=== PATIENT | female | born 1960 | race Caucasian/White ===

== ENCOUNTER 2025-07-31 07:51 | Outpatient (AMB) | payer OTHER, SELFPAY ==
--- NOTE | 2025-07-31 07:56 | A.OFFVIS_ITS ---
Vital Signs 07/31/25 08:03 Height 5 ft 7 in Weight 226 lb BMI 35.4 BP 142/90 H Blood Pressure Location Rt brachial Position Sitting Respiration 16 Pulse 73 Pulse Source Pulse Oximeter Pulse Oximetry (%) 97 Oxygen Delivery Method Room Air Intake Visit Reasons: tremor Personal Development Mentor Required: No Allergies amoxicillin Allergy (Unknown, Verified 07/31/25 08:10) Unknown Medication List - Last Reconciled 07/31/25 by Rhoda Florence, DARLENE acetaminophen 500 mg PO QID PRN bupropion HCl XL 150 mg PO QAM celecoxib 200 mg PO DAILY fluoxetine 20 mg PO DAILY lisinopril 10 mg PO DAILY omeprazole 10 mg PO DAILY simvastatin 20 mg PO QPM tirzepatide (weight loss) (Zepbound) mg subcut HPI Comments Details: German is a 64-year-old female patient with a past medical history of spinal cord compression with ACDF in 2013, anemia, arthritis, depression, heartburn, high cholesterol, sleep disturbances, here today for an evaluation of tremor. According to primary care referral notes, she had mentioned a tremor more pronounced to the left hand intermittent throughout the day. She was referred to Neurology for further evaluation. German tells me today that about a year and a half ago she noticed an intermittent tremor to her left upper extremity specifically to the 1st and 2nd digit. Over the course of the last couple of months it has become more frequent occurring now at least a couple of times per day for approximately 20 seconds or so. She describes the tremor as somewhat of a twitching of the 1st and 2nd digit. 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 She denies any weakness of the shoulder or biceps area. She cannot predict when it will happen. She anderson not note any specific positions in which the tremoring/twitching occurs. She does have a history of spinal cord compression and ACDF in 2013. This affected her right side with paresthesias and weakness but she feels that she had a full recovery and has no residual symptoms from this. She denies any neck stiffness or pain though she feels that she possibly lost some range of motion after her procedure. Father with neurological disease and there was suspected Parkinsonism. Sleep: Has had sleep difficulties all of her life with profound insomnia. Some mild snoring. No acting out of dreams Constipation: Mild constipation Smell: Does not feel that she has any loss of sense of smell Gait: 2 knee replacements, arthritis in one foot. Gait can be effected by this. 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 Lives home with No experience Denies any exposure to chemicals such as pesticides that she is aware of [facility] Medical History Anemia Hypertension HLD (hyperlipidemia) Depression Arthritis GERD (gastroesophageal reflux disease) Tremor Surgical History History of cholecystectomy H/O knee surgery H/O Spinal surgery Family History (Updated 07/31/25 @ 08:00 by Ann Wan CMA) Father Hypertension Diabetes mellitus Bipolar disorder Osteoporosis Mother Hypertension CHF (congestive heart failure) Osteoarthritis Brother Hypertension Gout Review of Systems Const All systems reviewed & are unremarkable except as noted in HPI and below Physical Exam Const General: cooperative, healthy appearing, comfortable and no acute distress Nutritional Appearance: well nourished Orientation/consciousness: patient oriented x3 Limitations: no limitations HEENT Head: Yes normal to inspection and Yes normocephalic Eyes General: appearance normal, both eyes and all related structures Visual Chen: normal visual chen by confrontation Alignment and Position: alignment normal Periorbital: periorbital findings normal Eyelids: Yes eyelids normal Conjunctivae: conjunctivae normal Sclerae: sclerae normal Neck Neck: Yes normal visual inspection General: Yes no CVA tenderness Back/Spine/Pelvis Back: no CVA tenderness Cervical Spine: normal cervical lordosis Thoracic/Lumbar Spine: thoracic and lumbar spine normal to inspection Neuro General: patient oriented x3 and tone normal Cranial nerves: Yes CN's II-XII intact bilaterally and Yes Facial sensation intact/muscles of mastication intact Cognition (Neuro): normal cognition Gait exam (Neuro): Normal gait present Motor exam (neuro): 5/5 motor strength present throughout and no tremor noted Sensory Exam: double simultaneous stimulation for sensation normal Deep tendon reflexes (DTR's): Right triceps reflex intensity grade: 1+, Left triceps reflex intensity grade: 1+, Rt Biceps (C5, C6): 1+, Left biceps reflex intensity grade: 1+, Right brachioradialis reflex intensity grade: 1+, Left brachioradialis reflex intensity grade: 1+, Right patellar reflex intensity grade: 1+, Left patellar reflex intensity grade: 1+, Right ankle reflex intensity grade: 1+ and Left ankle reflex intensity grade: 1+ Romberg Test: Negative Pupils: Normal pupillary reactivity/response: bilateral Psych Appearance: grossly normal Mental Status: mental status grossly normal Speech and movement: Normal speech and movement present and Clear speech present Affect: normal affect Attitude: cooperative Thought process: Normal thought process present Thought content: Normal thought content present Insight: Good insight present (Psych) Judgement: Good judgement present (Psych) Assessment & Plan Assessment & Plan (1) Weakness: Code(s): R53.1 - Weakness Category: Medical (2) Twitching: Code(s): R25.3 - Fasciculation Category: Medical Plan German is a 64-year-old female patient with a past medical history of spinal cord compression with ACDF in 2013, anemia, arthritis, depression, heartburn, high cholesterol, sleep disturbances, here today for an evaluation of tremor. After taking a full history from her and examining her, I can not discern a clear diagnosis for her described tremor. I was not able to reproduce the tremor during today's visit with positioning of her upper extremity or neck, distraction, or certain activities. [id number] test was normal. Her strength was seemingly normal on exam however she does note some weakness of the left wrist but without any pain. This raises some concern for possibility of CTS. She may be experiencing some fasciculations to this area which she is receiving as a tremor. I will obtain an EMG of the left upper extremity to rule out CTS and follow up after the EMG study. If her EMG is normal, we will continue to follow her to see how her symptoms develop over time. I can not fully exclude PD though based on today's exam she does not fit criteria. -EMG LUE -1 month Orders: Orders NE electromyogram (EMG) Today R25.3 - Fasciculation, R53.1 - Weakness NE nerve conduction velocity Today R25.3 - Fasciculation, R53.1 - Weakness Coding Level of Care Code New Pt Level 4 (75419) Diagnoses Weakness R53.1 Twitching R25.3
--- OUTSIDE RECORDS SUMMARY | 2025-07-31 07:56 | XMS_ITS | Data Portability ---
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 I have encouraged continued exercises with specific emphasis on quadriceps strengthening extension, as well as ROM and flexion. Also discussed the use of supportive stockings/icing/an d elevating if swelling continues to linger. In those patients with chronic stasis, edema or propensity for edema with cellulitis, we've encouraged consulting their PCP for longer term supportive stocking use. We've spoken about anti-biotic precautions before dental procedures. We recommended Amoxicillin and they will contact us for prescriptions and refills prn. If there is an allergy, we will discuss that further and make further recommendations for anti-biotic use and that will be on a continuing basis. Patient should continue a home exercise program to optimize their function, f/u with us with any problems or concerns - and see us back as instructed for routine follow up and xrays. XRAYS were evaluated today during patient's visit, indepently interpreted prior to receiving or reviewing Radiologist's interpretation and dictated report. This visit has been transcribed using voice recognition software, spelling errors may occur. Please contact provider with any questions. Not available 04/13/2023 10:55:34 Plan of Treatment Reminders Order Date Submit Date Provider Last Modified By Organization Details Last Modified Time Details Appointments None recorded. Lab None recorded. Referral None recorded. Procedures None recorded. Surgeries None recorded. Imaging None recorded. Medication Orders clindamycin HCl 300 mg capsule 2022 023 [facility][id number], [address], [facility], [place], [address], 3 10:55:37 Patient TargetsNo targets recorded. Patient Instructions Encounter Date Encounter Id Patient Instructions Last Modified By Organization Details Last Modified Time 05/17/2022 [id number] We have discusse d the post op TKA. I have encouraged continued outpatient physical therapy. A physical therapy prescription has been written, with specific emphasis on quadriceps strengthening extension, as well as ROM and flexion. We have spoken about wound care, the care of the actual incision, the care of the steri-strips and the care of the wound itself. Patient may use creams or lotions at this time if the wound is well healed. We discussed post op anticoagulation, pt may finish the anticoag med as prescribed post op, and return to their preop anticoag meds if they were prescribed. Also discussed the use of JET stockings. I would recommend stopping them at this point unless they normally use supportive stockings, in which they would return to their normal supportive stocking wear. Patient should continue to ice and elevate to help with the swelling. Spoke with patient about anti-biotic precautions. We recommended Amoxicillin and they will contact us for prescriptions. If there is an allergy, we will discuss that further and make further recommendations for anti-biotic use and that will be on a continuing basis. We talked specifically about ROM strengthening, wound care, activity modifications and driving. Patient will work with outpatient PT on increasing ROM, strength -- will follow up with us in 10 weeks if further PT is needed. [email or web address] Not available 05/17/2022 13:04:38 Reason for Referral None Reported. Results Created Date Observation Date Name Description Value Unit Range Abnormal Flag Note LastModifiedBy Organization Detail LastModifiedTime 05/17/20 22 05/17/2022 XR, hip, unila teral http:/ [email or web address] [email or web address]/I ntegra tionPr ocesso r.[email or web address] ?CMD=Sascha BORJA&ACC ESSION =[id number] charles [facility] [address], [place], [address], 05/26/2022 14:51:21 Result Notes Documentation Provider Name and Address Organization Details Recorded Time Xr, Hip, Unilateral : [email or web address]?CMD=OPENSTUDY&ACC [email or web address]=[id number] Marcy Torresradha [facility] 05/26/2022 14:51:21 Problems Name Problem SNOMED Code Status Onset Date Resolution Date Notes Provider Name and Address Organization Details Recorded Time Pain of left knee joint [id number] Active 2022 CATHRYN ORTIZ NP [address] [place] [address], [phone], [facility] 3 10:55:12 Problem Notes None recorded. Procedures Surgical History Date Name Laterality Status Provider Name and Address Organization Details Recorded Time 04/11/20 22 Orthopaedic Surgery completed CATHRYN ORTIZ NP [address] [place] [address], [phone], [facility] 05/17/2022 12:42:54 06/02/20 19 Orthopaedic Surgery completed CATHRYN ORTIZ NP [address] [place] [address], [phone], [facility] 05/17/2022 12:43:21 10/02/19 17 Other completed CATHRYN ORTIZ NP [address] [place] [address], [phone], [facility] 05/17/2022 12:43:38 10/02/19 05 cholecystectomy completed CATHRYN ORTIZ NP [address] [place] [address], [phone], [facility] 05/17/2022 12:43:47 10/02/18 98 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 Procedure Notes None recorded. Medical Equipment None Reported. Allergies Allergen ID Allergen Name Allergen Category Reaction Reaction Severity Criticality Documentation Date Start Date Code Code System Note Provider Name and Address Organization Details Recorded Time 652470 Macrodant in medicatio n hives Not available Not available 05/17/2022 38096 4 RxNorm CATHRYN ORTIZ, REGENERATION OPERATOR [address], [place], [address], [facility] 2 12:40:47 905723 amoxicill in medicatio n anaphylax is Not available Not available 05/17/2022 723 RxNorm CATHRYN ORTIZ, REGENERATION OPERATOR [address] [place], [phone], [facility] 2 12:41:01 604045 dicloxaci llin medicatio n anaphylax is Not available Not available 05/17/2022 3356 RxNorm CATHRYN ORTIZ, REGENERATION OPERATOR [address] [place], [address], [facility] 2 12:41:16 Medications Name Sig Start Date Stop Date Status Note LastModified by Organization Details LastModified Time celecoxib 200 mg capsule TAKE 1 TO 2 CAPSULES BY MOUTH ONCE A DAY active Not Available Not Available No t Available clindamycin HCl 300 mg capsule TAKE 2 CAPSULES BY MOUTH 1 HOUR BEFORE DENTAL VISIT. active Not Available Not Available No t Available trazodone 50 mg tablet TAKE 1 TABLET BY MOUTH EVERYDAY AT BEDTIME active Not Available Not Available No t Available naltrexone 50 mg tablet TAKE 1/4 TAB BY MOUTH TWICE A DAY 05/17 completed Not Available Not Available Not Available bupropion HCl SR 100 mg tablet,12 hr sustained-r elease TAKE 1 TABLET BY MOUTH TWICE A DAY 05/17 completed Not Available Not Available Not Available simvastatin 20 mg tablet TAKE 1 TABLET BY MOUTH EVERY DAY active Not Available Not Available No t Available lisinopril 10 mg tablet TAKE 1 TABLET BY MOUTH EVERY DAY active Not Available Not Available No t Available fluoxetine 10 mg capsule TAKE 1 CAPSULE BY MOUTH EVERY DAY active Not Available Not Available No t Available hydrochloro thiazide 25 mg tablet TAKE 1 TABLET BY MOUTH EVERY DAY active Not Available Not Available No t Available ondansetron 4 mg disintegrat ing tablet TAKE 1-2 TABS BY MOUTH EVERY 8 HOURS NEEDED FOR NAUSEA active Not Available Not Available No t Available fluoxetine 20 mg capsule TAKE 1 CAPSULE BY MOUTH EVERY DAY active Not Available Not Available No t Available oxycodone 5 mg tablet TAKE 1-2 TABLETS BY MOUTH EVERY 4 HOURS NEEDED FOR PAIN 05/17 completed Not Available Not Available Not Available bupropion HCl XL 150 mg 24 hr tablet, extended release TAKE 1 TABLET BY MOUTH EVERY DAY IN THE MORNING 05/17 completed Not Available Not Available Not Available Novofine 32 32 gauge x 1/4 needle ONCE DAILY WITH SAXENDA active Not Available Not Available No t Available Eliquis 2.5 mg tablet TAKE 1 TABLET BY MOUTH TWICE A DAY 05/17 completed Not Available Not Available Not Available Saxenda 3 mg/0.5 mL (18 mg/3 mL) subcutaneou s pen injector INJECTED 3 MG SUBCUTANE OUSLY DAILY active Not Available Not Available No t Available Wegovy 2.4 mg/0.75 mL subcutaneou s pen injector INJECT 2.4. MG SUBCUTANE OUSLY ONCE WEEKLY active Not Available Not Available No t Available Wegovy 1.7 mg/0.75 mL subcutaneou s pen injector INJECT 1 PEN SUBCUTANE OUSLY ONCE WEEKLY X 4 WEEKS active Not Available Not Available No t Available Paxlovid 300 mg (150 mg x 2)-100 mg tablets in a dose pack TAKE 3 TABLETS BY MOUTH TWICE DAILY FOR 5 DAYS DIRECTED ON PACKAGING active Not Available Not Available No t Available COVID-19 At-Home Test kit FOLLOW INSTRUCTI ONS INCLUDED WITH THE PACKAGE. active Not Available Not Available No t Available Vitals Date Recorded Body height Body mass index (BMI) Body weight Provider Name and Address Organization Details Last Updated DateTime 04/13/2023 170.18 cm 41.5 kg/m2 574710.98 g CATHRYN ORTIZ NP [address] [place] [address], [phone], [facility] 04/13/2023 10:46:40 Date Recorded Body height Body mass index (BMI) Body weight Provider Name and Address Organization Details Last Updated DateTime 05/17/2022 170.18 cm 41.5 kg/m2 610765.98 g CATHRYN ORTIZ NP [address] [place] [address], [phone] 05/17/2022 12:40:30 Social History None recorded. Functional Status None recorded. Mental Status None recorded. Family History Relationship Description Onset Age of this Age Resolved Age Notes LastModified by Organization Details LastModified Time Father No current problems or disability [email or web address] Not available 12:42:32 Mother No current problems or disability [email or web address] Not available 12:42:32 Medical History Condition Response Blood Clots / Phlebitis N HIV or AIDS N High Blood Pressure Y Depression or Anxiety N MRSA N Any Other Significant Medical Issues N Emphysema / Chronic Bronchitis N Reaction to General/Local Anesthesia N Blood Disorder: Anemia, clotting disorde r, etc. (please specify) N Weight Gain / Loss N Hepatitis / Jaundice N Diabetes: Type I or II (please specify) N Kidney / Bladder Infections N Heart Condition: Heart Attac k, Afib, Irregular Heartbeat, etc. (please specify) N Hearing Loss N Seizures / Epilepsy N Night Sweats N Cancer N Chemical Dependency / Alcoholism N Stroke N Ulcer / Stomach Bleeding / Indigestion N Visual Loss or Glaucoma N Psoriasis / Skin Rash N Thyroid Disorder N Pulmonary Embolism N Asthma / Shortness of Breath / Sleep [employer] ea (please specify) N Gynecological HistoryNo gynecological history recorded. Obstetrics History GPAL:G 0 P 0 0 0 0 Immunizations Vaccine Type Date Status Note Provider Nam e and Address Organization Details Recorded Time SARS-COV-2 (COVID-19) vaccine, UNSPECIFIED 09/29/2020 completed David cochran [facility] 05/17/2022 12:46:04 SARS-COV-2 (COVID-19) vaccine, UNSPECIFIED 10/20/2019 completed David cochran [facility] 05/17/2022 12:46:12 SARS-COV-2 (COVID-19) vaccine, UNSPECIFIED 06/30/2021 completed David cochran [facility] 05/17/2022 12:46:19 SARS-COV-2 (COVID-19) vaccine, UNSPECIFIED 02/11/2022 completed David cochran [facility] 05/17/2022 12:46:26 Past Encounters Encounter ID Performer Location Encounter Start Date Encounter Closed Date Diagnosis/Indication Diagnosis SNOMED-CT Code Diagnosis ICD10 Code Diagnosis IMO Codes Diagnosis Note [id number] CATHRYN ORTIZ NP [address] [address] 05/17/2022 11:50:37 05/17/2022 13:18:41 History of left total knee replacement 4715391157 500495 Z96.210 [id number] CATHRYN ORTIZ NP [address] [address] 04/13/2023 10:28:41 04/13/2023 11:16:18 History of left total knee replacement 4629141668 881197 Z96.652 Pain of le ft knee joint 4220349574 43589 M25.562 Health Concerns Section Related Observation LastModified by Organization Detai ls LastModified Time None Recorded Concern Status LastModified by Organization Details LastModified Time None Recorded Advance Directives Directive None Recorded Payers Insurance Date Sequence Insurance Name Policy Number Policy Mueller Covered Member ID Mueller Member ID Guarantor Name 04/25/2023 1 [facility] German Tang [id number] German Tang 07/26/2022 1 [facility] [id number] German Tang [id number] German Tang Notes Date Note Type Note Provider Name and Address Organization Details Recorded Time 05/17/2022 text/html ROS as noted in the HPI This is a patient of [facility], s/p LEFT TKA approx. 4 weeks ago at [facility]. Patient is doing well, taking TYLENOLfor pain. Patient is currently progressing well with outpatient physical therapy. Patient took ELIQUIS for post op anticoagulation, and has finished that course. No fevers, chills, falls, or trauma. Patient ambulates using a CANE . Other complaints include very sore, working on ROM, gait CATHRYN ORTIZ NP [address] [place] [address], [phone], [facility] 05/17/2022 13:04:55 04/13/2023 text/html ROS as noted in the HPI This is a patient of , s/p LEFT TKA approx. one year ago. Patient is doing well, taking NOTHINGfor pain. Patient is currently progressing well with home exercise program. No fevers, chills, falls, or trauma. Patient is not currently using any assistive devices. Other complaints include - still working on gait, she feels a bit deconditioned d/t oa in rest of her body and ankles CATHRYN ORTIZ NP [address] [place] [address], [place], [phone], [facility] - [facility] 04/17/2023 14:11:46 OBGyn Episode No OBEpisode recorded.
--- OUTSIDE RECORDS SUMMARY | 2025-07-31 07:56 | XMS_ITS | Clinical Summary ---
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 Name Role Phone Khai Carver MD Primary Care Provider [phone] Encounters Date Type Department Care Team Description 05/05/2025 2:14 PM EDT - 05/05/2025 11:59 PM EDT Hospital Encounter Radiology Department - [address] [phone] Mass of right breast Discharge Disposition: Home or Self Care from Last 3 Months Family History Medical History Relation Name Comments Breast cancer Maternal Cousin 3 cousins Breast cancer Other pat aunt Relation Name Status Comments Maternal Cousin 3 cousins Alive Other pat aunt Social History Tobacco Use Types Packs/Day Years Used Date Smoking Tobacco: Never Assessed Comments Unknown Sex and Gender Information Value Date Recorded Sex Assigned at Not on file Legal Sex Female 3:21 PM EDT Gender Identity Not on file Sexual Orientation Not on file Obstetrics History Para Term AB IAB SAB Ectopic Multiple Livin g Live Births 0 0 0 Plan of Treatment Health Maintenance Due Date Last Done Comments Colorectal Cancer Screening: Colonoscopy 1961 Cervical Cancer Screening: Pap Smear 1982 Pneumococcal Vaccine: 50+ Years (1 of 1 - PCV) 2011 Depression Screening 10/02/2024 HIV Screening 04/17/2025 Hepatitis C Screening 04/17/2025 Social Influencers of Health Screening 04/17/2025 Influenza Vaccine (#1) 2025 , 06/19/2023, 06/29/2022, Additional history exists Hypertension/CHF/CAD Annual BMP Blood Test 03/11/2026 03/11/2025, 02/19/2024, 11/30/2022 Breast Cancer Screening 05/05/2027 05/05/2025 Cholesterol Screening (Lipid Panel) 03/11/2030 03/11/2025 DTaP,Tdap,and Td Vaccines (3 - Td or Tdap) 07/09/2034 07/09/2024, 06/13/2014 RSV Immunization Adult Patients (1 - 1-dose 75+ series) 2036 MMR Vaccines Aged Out 10/27/1994 No longer eligi ble based on patient's age to complete this topic Zoster Vaccines Completed 08/26/2020, 08/03, 05/29/2020 COVID-19 Vaccine Completed 06/15/2024, 12/2022, 06/29/2022, Additional history exists HIB Vaccines Aged Out No longer eligi ble based on patient's age to complete this topic HPV Vaccines Aged Out No longer eligi ble based on patient's age to complete this topic Hepatitis A Vaccines Aged Out No long er eligible based on patient's age to complete this topic Hepatitis B Vaccines Aged Out No long er eligible based on patient's age to complete this topic IPV Vaccines Aged Out No longer eligi ble based on patient's age to complete this topic Meningococcal ACWY Vaccine Aged Out N o longer eligible based on patient's age to complete this topic Meningococcal B Vaccine Aged Out No l onger eligible based on patient's age to complete this topic RSV Immunization Patients Under 20 months Aged Out No longer eligible based on patient's age to complete this topic Varicella Vaccines Aged Out No longer eligible based on patient's age to complete this topic Procedures Procedure Name Priority Date/Time Associated Diagnosis Comments MG MAMMO DIGITAL DIAGNOSTIC W HOMERO BILAT Routine 05/05/2025 2:32 PM EDT Mass of right breast from Last 3 Months Results * MG Mammo Digital Diagnostic w Homero bilat (05/05/2025 2:32 PM EDT) Anatomical Region Laterality Modality Breast Bilateral Mammography 05/05/2025 2:34 PM EDT Impressions 05/05/2025 2:48 PM EDT Decreasing size of the tiny nodule in the lower inner right breast which is considered benign. No further follow-up needed. No new mammographic evidence of malignancy in either breast. BREAST DENSITY: B - There are scattered areas of fibroglandular density. BI-RADS CATEGORY: 2 - BENIGN RECOMMENDATION: Screening bilateral mammogram is recommended in 1 year. MAMMO LOCATION: [facility], [address] [place] [address], [phone], . -------- FINAL REPORT -------- Dictated By: Lizzette Ramsay Dictated Date: 05/05/2025 14:34 ET Assigned Physician: Lizzette Rmasay Reviewed and Electronically Signed By: Lizzette Ramsay Signed Date: 05/05/2025 14:48 ET Workstation ID: [id number] Transcribed By: Self Edit Transcribed Date: 05/05/2025 14:34 ET Narrative 05/05/2025 2:48 PM EDT EXAM: MG MAMMO DIGITAL DIAGNOSTIC W HOMERO BILAT HISTORY: One year follow-up of a probably benign focal asymmetry in the lower inner right breast. COMPARISON: 09/12/2024 and as far back as 01/04/2023 TECHNIQUE: Bilateral mediolateral oblique and craniocaudal views were obtained digitally with 3-D mammogram (digital breast tomosynthesis). Computer-aided detection was utilized in evaluation of this exam (CAD). FINDINGS: Decreasing size of the tiny circumscribed nodule in the anterior lower inner right breast. No new suspicious mass, architectural distortion, or suspicious calcifications in either breast. Procedure Note Lizzette Ramsay MD - 05/05/2025 EXAM: MG MAMMO DIGITAL DIAGNOSTIC W HOMERO BILAT HISTORY: One year follow-up of a probably benign focal asymmetry in thelower inner right breast. COMPARISON: 09/12/2024 and as far back as 01/04/2023 TECHNIQUE: Bilateral mediolateral oblique and craniocaudal views wereobtained digitally with 3-D mammogram (digital breast tomosynthesis).Computer-aided detection was utilized in evaluation of this exam (CAD). FINDINGS: Decreasing size of the tiny circumscribed nodule in the anterior lowerinner right breast. No new suspicious mass, architectural distortion, orsuspicious calcifications in either breast. IMPRESSION: Decreasing size of the tiny nodule in the lower inner right breast whichis considered benign. No further follow-up needed. No new mammographic evidence of malignancy in either breast. BREAST DENSITY: B - There are scattered areas of fibroglandular density. BI-RADS CATEGORY: 2 - BENIGN RECOMMENDATION: Screening bilateral mammogram is recommended in 1 year. MAMMO LOCATION: [facility], [address] [place] [address], [phone], . -------- FINAL REPORT -------- Dictated By: Lizzette Ramsay Dictated Date: 05/05/2025 14:34 ET Assigned Physician: Lizzette Ramsay Reviewed and Electronically Signed By: Lizzette Ramsay Signed Date: 05/05/2025 14:48 ET Workstation ID: [id number] Transcribed By: Self Edit Transcribed Date: 05/05/2025 14:34 ET Khai Carver MD IMG BI PROCEDURES Final Result from Last 3 Months Insurance [facility] Care Teams Silk Finisher Relationship Specialty Start Date End Date Khai Carver MD [address] [place], [place] [phone] PCP - General Internal Medicine 04/16/25
--- OUTSIDE RECORDS SUMMARY | 2025-07-31 07:56 | XMS_ITS | Encounter Summary ---
Author Organization [facility] Address [address] [place] [address] Phone Care Team Providers Care Academic Coach Name Role Phone Cinthya Felix MD Unavailable [phone] Khai Carver MD Primary Care Provider [phone] John Ennis PA-C Primary Care Provider [phone] Encounter Details Date Type Department Care Team (Latest Contact Info) Description 04/07/2025 Ancillary Orders [facility] Internal Medicine [address] [place] [address] Khai Carver MD [address] [place] [address] Breast cancer screening by mammogram (Primary Dx); Other abnormal and inconclusive findings on diagnostic imaging of breast Social History Tobacco Use Types Packs/Day Years Used Date Smoking Tobacco: Never Smokeless Tobacco: Never Alcohol Use Standard Drinks/Week Comments Yes 0 (1 standard drink = 0.6 oz pur e alcohol) 1-2 drinks, Monthly or less Child or Family Care Answer Date Record ed Do you have problems with on e of the following making it difficult for you to work, study, or receive health care? No 03/05/2025 Education Answer Date Recorded Are you interested in help w ith more adult education (for example, completing high school, GED, job training, learning the [place] language, technical skills, or developing parenting skills)? No 03/05/2025 Are you concerned about learning? Not on file 03/05/2025 No 03/05/2025 Yes 03/05/2025 Food Answer Date Recorded Within the past 6 months we worried whether our food would run out before we got money to buy more. Never True 03/05/2025 Within the past 6 months the food we bought just didn't last and we didn't have enough money to get more. Never True Residential Stability Answer Date Recor ded What is your housing situation today? I have harsh sing 03/05/2025 How many times have you move d in the past 12 months? Zero (I did not move) 03/05/2025 Paying for Meds Answer Date Recorded Do you have trouble paying for medicines? No 03/05/2025 Paying Utility Bills Answer Date Record ed Do you have trouble paying your heating or elect ricity bill? No 03/05/2025 Transportation Answer Date Recorded Has the lack of transportati on kept you from medical appointments or from getting medications? No 03/05/2025 Digital Access Answer Date Recorded No 03/05/2025 Yes 03/05/2025 Do you have reliable internet access at home? Ye s 03/05/2025 Do you have a device (e.g., phone, tablet, computer) with a working camera? Yes 03/05/2025 Intimate Partner Violence Answer Date R ecorded Are you denied basic needs s uch as food, clothing, or medical care? No 03/05/2025 In the past 12 months have y ou been in a relationship with a person who hurts, threatens, or tries to control you? No 03/05/2025 Are you denied basic needs s uch as food, clothing, or medical care? No 03/05/2025 In the past 12 months have y ou been in a relationship with a person who hurts, threatens, or tries to control you? 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 Not on file documented as of this encounter Plan of Treatment Upcoming Encounters Date Type Department Care Team (Late st Contact Info) Description 07/23/2025 Procedure Pass [facility] Echo Lab [address] [place] [address] 09/08/2025 9:30 AM EST Appointment [facility] Echo Lab [address] [place] [address] John Ennis PA-C [address] [place] [address] 09/22/2025 8:00 AM EST Office Visit [facility] Internal Medicine [address] [place], [place] [phone] John Ennis PA-C [address] [place], [place] [phone] Scheduled Orders Name Type Priority Associated Diagnoses Orde r Schedule Mammogram Diagnostic (Bilateral) Imaging Routine Other abnormal and inconclusive findings on diagnostic imaging of breast Expected: 04/01/2025, Expires: 07/02/2025 documented as of this encounter Visit Diagnoses Diagnosis Breast cancer screening by mammogram- Primary Other abnormal and inconclusive findings on diagnostic imaging of breast documented in this encounter Additional Health Concerns Assessment Noted Time PHQ-2 Depression Total Score: 1 03/05/20 25 6:08 PM EDT documented as of this encounter Care Teams Academic Coach Relationship Specialty Start Date End Date Khai Carver MD [address] [place] [address] [phone] PCP - General Internal Medicine 04/01/25 04/29/25 John Ennis PA-C [address] [place] [address] [phone] PCP - General Physician Trial Examiner 04/30/25 Cinthya Felix MD [address] [place] [address] Orthopedics & Sports Medicine, [facility] [place] [address] Historical LMR Provider 07/22/1704/29 documented as of this encounter Additional Source Comments The information contained in this document represents components of the legal health record. It is not the complete legal health record.[facility]
--- OUTSIDE RECORDS SUMMARY | 2025-07-31 07:56 | XMS_ITS | Encounter Summary ---
Author Organization [facility] Address [address] [place] [address] Phone Care Team Providers Care Emergency Veterinary Technician Name Role Phone Rich Gracia MD Primary Care Provid er Cinthya Felix MD Unavailable [phone] John Ennis PA-C Primary Care Provider [phone] Khai Carver MD Primary Care Provider [phone] John Ennis PA-C Primary Care Provider [phone] Encounter Details Date Type Department Care Team (Latest Contact Info) Description 02/19/2024 Transcribe Orders [facility] Laboratory [address] [address] Celina Hernández, JEMAL [address] [place] [address] Nausea (Primary Dx); Retching; Abdominal pain, left upper quadrant Social History Tobacco Use Types Packs/Day Years Used Date Smoking Tobacco: Never Smokeless Tobacco: Never Alcohol Use Standard Drinks/Week Comments Not Currently 0 (1 standard drink = 0.6 oz pur e alcohol) Education Answer Date Recorded Are you interested in more education? Not on miguelito e 01/27/2023 Are you concerned about learning? Not on file 01/27/2023 No 01/27/2023 No 01/27/2023 Digital Access Answer Date Recorded No 02/22/2023 No 02/22/2023 Reliable internet access at home? Not on file 02/22/2023 Device with a working camera? 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 Not on file documented as of this encounter Plan of Treatment Upcoming Encounters Date Type Department Care Team (Late st Contact Info) Description 07/23/2025 Procedure Pass [facility] Echo Lab [address] [place] [address] 09/08/2025 9:30 AM EST Appointment [facility] Echo Lab [address] [place] [address] John Ennis PA-C [address] [place] [address] 09/22/2025 8:00 AM EST Office Visit [facility] Internal Medicine [address] [place], [place] [phone] John Ennis PA-C [address] [place] [address] documented as of this encounter Results * Lipase (02/19/2024 10:58 AM EDT) LIPASE 42 16 - 63 U/L [facility] Blood 02/19/2024 10:5 8 AM EDT 02/19/2024 11:01 AM EDT us Celina Hernández AUTOMATION QA LEAD LAB BLOOD ORDERABLES Leonora l Result [address] [address] * C-Reactive Protein (02/19/2024 10:58 AM EDT) C REACTIVE PROTEIN <3.0 0.0 - 4.0 mg/L [facility] Blood 02/19/2024 10:5 8 AM EDT 02/19/2024 11:01 AM EDT Celina Hernández NP LAB BLOOD ORDERABLES Leonora l Result [address] [address] * Comprehensive metabolic panel (02/19/2024 10:58 AM EDT) SODIUM 136 133 - 146 mmol/L [facility] POTASSIUM 4.0 3.3 - 5.1 mmol/L [facility] CHLORIDE 99 96 - 108 mmol/L [facility] CO2 25 21 - 35 mmol/L [facility] BUN 11 6 - 19 mg/dL [facility] CREATININE 0.70 0.5 - 1.5 mg/dL [facility] GLUCOSE 92 70 - 99 mg/dL [facility] ALBUMIN 4.4 3.9 - 4.8 g/dL [facility] TOTAL PROTEIN 7.7 6.5 - 8.0 g/dL [facility] CALCIUM 10.0 8.4 - 10.3 mg/dL [facility] ALKALINE PHOSPHATASE 89 39 - 117 U/L [facility] TOTAL BILIRUBIN 0.4 0.0 - 1.2 mg/dL [facility] AST 22 0 - 37 U/L [facility] ALT 13 0 - 40 U/L [facility] GLOBULIN 3.3 1 - 4.8 g/dL [facility] EGFR 98 >59 mL/min/1.7 3m2 [facility] Comment:Estimated glomerular filtration rate calculated using the CKD-EPI refit equation. ANION GAP 16 10 - 20 mmol/L [facility] Blood 02/19/2024 10:5 8 AM EDT 02/19/2024 11:01 AM EDT Celina Eliza Willemain AUTOMATION QA LEAD LAB BLOOD ORDERABLES Leonoar l Result Performing Organization Address City/[facility]/ZIP Co de Phone Number [address] [address] * CBC (02/19/2024 10:58 AM EDT) WBC 5.41 4.00 - 11.00 K/uL [facility] RBC 4.57 3.72 - 5.30 M/uL [facility] HGB 13.5 11.4 - 15.9 g/dL [facility] HCT 41.7 34.2 - 46.8 % [facility] PLT 292 140 - 430 K/uL [facility] MCV 91.2 78.0 - 97.0 fL [facility] MCH 29.5 25.0 - 33.0 pg [facility] MCHC 32.4 32.0 - 36.0 g/dL [facility] RDW 13.7 11.0 - 16.0 % [facility] MPV 11.5 8.4 - 12.8 fl [facility] Blood 02/19/2024 10:5 8 AM EDT 02/19/2024 11:01 AM EDT Celina Hernández AUTOMATION QA LEAD LAB BLOOD ORDERABLES Leonora l Result Performing Organization Address [facility] Co de Phone Number [address] [address] documented in this encounter Visit Diagnoses Diagnosis Nausea- Primary Nausea alone Retching Vomiting alone Abdominal pain, left upper quadrant documented in this encounter Care Teams Emergency Veterinary Technician Relationship Specialty Start Date End Date Rich Gracia MD [address] [phone] PCP - General 07/17/17 03/09/25 John Ennis PA-C [address] [place] [address] [email or web address] PCP - General Physician Barge Captain 03/10/25 03/31/25 Khai Carver MD [address] [place] [address] [email or web address] PCP - General Internal Medicine 04/01/25 04/29/25 John Ennis PA-C [address] [place] [address] PCP - General Physician Barge Captain 04/30/25 Cinthya Felix MD [address] [place] [address] Orthopedics & Sports Medicine, [place], [place] [id number] [email or web address] Historical LMR Provider 07/22/1704/29 documented as of this encounter Additional Source Comments The information contained in this document represents components of the legal health record. It is not the complete legal health record.[facility]
--- OUTSIDE RECORDS SUMMARY | 2025-07-31 07:56 | XMS_ITS | Encounter Summary ---
Author Organization [facility] Address [address] [place] [address] Phone Care Team Providers Care Religion Instructor Name Role Phone Rich Gracia MD Primary Care Provid er Cinthya Felix MD Unavailable [phone] John Ennis PA-C Primary Care Provider [phone] Khai Carver MD Primary Care Provider [phone] John Ennis PA-C Primary Care Provider [phone] Encounter Details Date Type Department Care Team (Late st Contact Info) Description 04/02/2024 Procedure Pass [facility] Endoscopy Admitting Dept Virtual Department [address] [place] [address] Social History Tobacco Use Types Packs/Day Years [...] 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 Not on file documented as of this encounter Plan of Treatment Upcoming Encounters Date Type Department Care Team (Late st Contact Info) Description 07/23/2025 Procedure Pass [facility] Echo Lab [address] [place] [address] 09/08/2025 9:30 AM EST Appointment [facility] Echo Lab [address] [place] [address] John Ennis PA-C [address] [place] [address] 09/22/2025 8:00 AM EST Office Visit [facility] Internal Medicine [address] [place] [address] John Ennis PA-C [address] [place] [address] documented as of this encounter Visit Diagnoses Not on filedocumented in this encounter Care Teams Religion Instructor Relationship Specialty Start Date End Date Rich Gracia MD 35 [facility] 1 [place] [phone] PCP - General 07/17/17 03/09/25 John Ennis PA-C [address] [place] [address] PCP - General Physician Box Toe Buffer 03/10/25 03/31/25 Khai Carver MD [address] [place] [address] [email or web address] PCP - General Internal Medicine 04/01/25 04/29/25 John Ennis PA-C [address] [place] [address] PCP - General Physician Box Toe Buffer 04/30/25 Cinthya Felix MD [address] [place] [address] Orthopedics & Sports Medicine, [place] [address] [email or web address] Historical LMR Provider 07/22/1704/29 documented as of this encounter Additional Source Comments The information contained in this document represents components of the legal health record. It is not the complete legal health record.[facility]
--- OUTSIDE RECORDS SUMMARY | 2025-07-31 07:56 | XMS_ITS | Encounter Summary ---
Author Organization [facility] Address [address] [place] [address] Phone Care Team Providers Care Surgical Scheduler Name Role Phone Rich Gracia MD Primary Care Provid er Cinthya Felix MD Unavailable [phone] John Ennis PA-C Primary Care Provider [phone] Khai Carver MD Primary Care Provider [phone] John Ennis PA-C Primary Care Provider [phone] Encounter Details Date Type Department Care Team (Late st Contact Info) Description 12/30/2022 Ancillary Orders [facility] Orthopedics & Sports Medicine [address] [place] [address] [phone] Cinthya Felix MD [address] [place] [address] Orthopedics & Sports Medicine, 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 Not on file documented as of this encounter Plan of Treatment Upcoming Encounters Date Type Department Care Team (Late st Contact Info) Description 07/23/2025 Procedure Pass [facility] Echo Lab [address] [place] [address] 09/08/2025 9:30 AM EST Appointment [facility] Echo Lab [address] [place] [address] John Ennis PA-C [address] [place] [address] [email or web address] 09/22/2025 8:00 AM EST Office Visit [facility] Internal Medicine [address] [place] [address] John Ennis PA-C [address] [place] [address] [email or web address] documented as of this encounter Visit Diagnoses Not on filedocumented in this encounter Additional Health Concerns Infection Onset Date Last Indicated Resolved Time COVID-19 12/16/2022 12/16/2022 01/06/2023 1:21 AM EDT documented as of this encounter Care Teams Surgical Scheduler Relationship Specialty Start Date End Date Rich Gracia MD 35 [facility] [address] [place] [phone] PCP - General 07/17/17 03/09/25 John Ennis PA-C [address] [place] [address] [email or web address] PCP - General Physician Reinforcing Steel Worker 03/10/25 03/31/25 Khai Carver MD [address] [place] [address] PCP - General Internal Medicine 04/01/25 04/29/25 John Ennis PA-C [address] [place] [address] PCP - General Physician Reinforcing Steel Worker 04/30/25 Cinthya Felix MD [address] [place] [address] Orthopedics & Sports Medicine, [place] [address] [email or web address] Historical LMR Provider 07/22/1704/29 documented as of this encounter Additional Source Comments The information contained in this document represents components of the legal health record. It is not the complete legal health record.[facility]
--- OUTSIDE RECORDS SUMMARY | 2025-07-31 07:56 | XMS_ITS | Encounter Summary ---
Author Organization [facility] Address [address] [place] [address] Phone Care Team Providers Care Rn Lvn Name Role Phone Rich Gracia MD Primary Care Provid er Cinthya Felix MD Unavailable [phone] John Ennis PA-C Primary Care Provider [phone] Khai Carver MD Primary Care Provider [phone] John Ennis PA-C Primary Care Provider [phone] Encounter Details Date Type Department Care Team (Late st Contact Info) Description 12/06/2022 Procedure Pass [facility] - [address] [place] [address] Social History Tobacco Use Types Packs/Day Years [...] 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 file documented as of this encounter Plan of Treatment Upcoming Encounters Date Type Department Care Team (Late st Contact Info) Description 07/23/2025 Procedure Pass [facility] Echo Lab 30 [place] [address] 09/08/2025 9:30 AM EST Appointment [facility] Echo Lab [address] [place] [address] John Ennis PA-C [address] [place] [address] 09/22/2025 8:00 AM EST Office Visit [facility] Internal Medicine [address] [place] [address] John Ennis PA-C [address] [place] [address] documented as of this encounter Visit Diagnoses Not on filedocumented in this encounter Additional Health Concerns Infection Onset Date Last Indicated Resolved Time COVID-19 12/16/2022 12/16/2022 01/06/2023 1:21 AM EDT documented as of this encounter Care Teams Rn Lvn Relationship Specialty Start Date End Date Rich Gracia MD [address] [place] [phone] PCP - General 07/17/17 03/09/25 John Ennis PA-C [address] [place], [place] PCP - General Physician Customs And Border Protection Inspector 03/10/25 03/31/25 Khai Carver MD [address] [place] [address] PCP - General Internal Medicine 04/01/25 04/29/25 John Ennis PA-C [address] [place] [address] [email or web address] PCP - General Physician Customs And Border Protection Inspector 04/30/25 Cinthya Felix MD [address] [place] [address] Orthopedics & Sports Medicine, [place] [address] [email or web address] Historical LMR Provider 07/22/1704/29 documented as of this encounter Additional Source Comments The information contained in this document represents components of the legal health record. It is not the complete legal health record.[facility]
--- OUTSIDE RECORDS SUMMARY | 2025-07-31 07:56 | XMS_ITS | Encounter Summary ---
Author Organization [facility] Address [address] [place] [address] Phone Care Team Providers Care Program Research Specialist Name Role Phone Rich Gracia MD Primary Care Provid er Cinthya Felix MD Unavailable John Ennis PA-C Primary Care Provider [phone] Khai Carver MD Primary Care Provider [phone] John Ennis PA-C Primary Care Provider [phone] Encounter Details Date Type Department Care Team (Late st Contact Info) Description 02/19/2024 Procedure Pass [facility] - [address] [address] Social History Tobacco Use Types Packs/Day Years [...] 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 Not on file documented as of this encounter Plan of Treatment Upcoming Encounters Date Type Department Care Team (Late st Contact Info) Description 07/23/2025 Procedure Pass [facility] Echo Lab [address] [place] [address] 09/08/2025 9:30 AM EST Appointment [facility] Echo Lab [address] [place] [address] John Ennis PA-C [address] [place] [address] 09/22/2025 8:00 AM EST Office Visit [facility] Internal Medicine 40 [place] [address] John Ennis PA-C [address] [place] [address] documented as of this encounter Visit Diagnoses Not on filedocumented in this encounter Care Teams Program Research Specialist Relationship Specialty Start Date End Date Rich Gracia MD 35 [facility] 1 [place] [phone] PCP - General 07/17/17 03/09/25 John Ennis PA-C [address] [place] [address] PCP - General Physician Technical Service Specialist 03/10/25 03/31/25 Khai Carver MD [address] [place] [address] PCP - General Internal Medicine 04/01/25 04/29/25 John Ennis PA-C [address] [place] [address] PCP - General Physician Technical Service Specialist 04/30/25 Cinthya Felix MD [address] [place] [address] Orthopedics & Sports Medicine, [place] [address] [email or web address] Historical LMR Provider 07/22/1704/29 documented as of this encounter Additional Source Comments The information contained in this document represents components of the legal health record. It is not the complete legal health record.[facility]
--- OUTSIDE RECORDS SUMMARY | 2025-07-31 07:56 | XMS_ITS | Encounter Summary ---
Author Organization [facility] Address [address] [place] [address] [place] [address] Phone Care Team Providers Care Tool Grinder Operator External Name Role Phone Rich Gracia MD Primary Care Provid er Cinthya Felix MD Unavailable [phone] John Ennis PA-C Primary Care Provider [phone] Khai Carver MD Primary Care Provider [phone] John Ennis PA-C Primary Care Provider [phone] Encounter Details Date Type Department Care Team (Late st Contact Info) Description 04/09/2024 Procedure Pass [facility] Admitting Dept Virtual Department [address] [place] [address] Social History Tobacco Use Types Packs/Day Years [...] with a working camera? Not on file Intimate Partner Violence Answer Date R ecorded Are you denied basic needs s uch as food, clothing, or medical care? No 04/09/2024 In the past 12 months have y ou been in a relationship with a person who hurts, threatens, or tries to control you? No 04/09/2024 Are you denied basic needs s uch as food, clothing, or medical care? No 04/09/2024 In the past 12 months have y ou been in a relationship with a person who hurts, threatens, or tries to control you? 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 on file documented as of this encounter Plan of Treatment Upcoming Encounters Date Type Department Care Team (Late st Contact Info) Description 07/23/2025 Procedure Pass [facility] [address] [place] [address] 09/08/2025 9:30 AM EST Appointment [facility] [address] [place] [address] John Ennis PA-C [address] [place] [address] [email or web address] 09/22/2025 8:00 AM EST Office Visit [facility] [place] [facility] 40 [place] [address] John Ennis PA-C [address] [place] [address] documented as of this encounter Visit Diagnoses Not on filedocumented in this encounter Care Teams Tool Grinder Operator External Relationship Specialty Start Date End Date Rich Gracia MD 35 [facility] [address] [place] [phone] PCP - General 07/17/17 03/09/25 John Ennis PA-C [address] [place] [address] [email or web address] PCP - General Physician Mine Exploration Engineer 03/10/25 03/31/25 Khai Carver MD [address] [place], [place] [phone] [email or web address] PCP - General Internal Medicine 04/01/25 04/29/25 John Ennis PA-C [address] [place] [address] PCP - General Physician Mine Exploration Engineer 04/30/25 Cinthya Felix MD [address] [place] [address] Orth[facility], [place], [place] [phone] [email or web address] Historical LMR Provider 07/22/1704/29 documented as of this encounter Additional Source Comments The information contained in this document represents components of the legal health record. It is not the complete legal health record.[facility]
--- OUTSIDE RECORDS SUMMARY | 2025-07-31 07:56 | XMS_ITS | Encounter Summary ---
Author Organization [facility] Address [address] [place] [address] Phone Care Team Providers Care Medical Service Representative Name Role Phone Rich Gracia MD Primary Care Provid er Cinthya Felix MD Unavailable [phone] John Ennis PA-C Primary Care Provider [phone] Khai Carver MD Primary Care Provider [phone] John Ennis PA-C Primary Care Provider [phone] Encounter Details Date Type Department Care Team (Late st Contact Info) Description 02/22/2023 Procedure Pass [facility] - [address] [place] [address] Social History Tobacco Use Types Packs/Day Years [...] 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 Not on file Not on file documented as of this encounter Plan of Treatment Upcoming Encounters Date Type Department Care Team (Late st Contact Info) Description 07/23/2025 Procedure Pass [facility] 30 [place] [address] 09/08/2025 9:30 AM EST Appointment [facility] [address] [place] [address] John Ennis PA-C 40 [place] [address] 09/22/2025 8:00 AM EST Office Visit [facility] Internal Medicine 40 [place] [address] John Ennis PA-C [address] [place] [address] documented as of this encounter Visit Diagnoses Not on filedocumented in this encounter Care Teams Medical Service Representative Relationship Specialty Start Date End Date Rich Gracia MD 35 [facility] 1 [place] [phone] PCP - General 07/17/17 03/09/25 John Ennis PA-C [address] [place] [address] [email or web address] PCP - General Physician Stage Rigger 03/10/25 03/31/25 Khai Carver MD [address] [place] [address] PCP - General Internal Medicine 04/01/25 04/29/25 John Ennis PA-C [address] [place] [phone] PCP - General Physician Stage Rigger 04/30/25 Cinthya Felix MD [address] [place] [address] Orthopedics & Sports Medicine, [place] [address] [email or web address] Historical LMR Provider 07/22/1704/29 documented as of this encounter Additional Source Comments The information contained in this document represents components of the legal health record. It is not the complete legal health record.[facility]
--- OUTSIDE RECORDS SUMMARY | 2025-07-31 07:56 | XMS_ITS | Encounter Summary ---
Author Organization [facility] Address [address] [place] [address] Phone Care Team Providers Care Digital Media Analyst Name Role Phone Rich Gracia MD Primary Care Provid er Cinthya Felix MD Unavailable [phone] John Ennis PA-C Primary Care Provider [phone] Khai Carver MD Primary Care Provider John Ennis PA-C Primary Care Provider [phone] Encounter Details Date Type Department Care Team (Late st Contact Info) Description 12/30/2022 Ancillary Orders [address] [address] Cinthya Felix MD [address] [place] [address] Orthopedics [facility], [place], [place] [phone] [email or web address] Hip pain, chronic, right Social History Tobacco Use Types Packs/Day Years [...] 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 Not on file documented as of this encounter Plan of Treatment Upcoming Encounters Date Type Department Care Team (Late st Contact Info) Description 07/23/2025 Procedure Pass [facility] Echo Lab 30 [place] [address] 09/08/2025 9:30 AM EST Appointment [facility] Echo Lab [address] [place] [address] John Ennis PA-C [address] [place] [address] 09/22/2025 8:00 AM EST Office Visit [facility] Internal Medicine 40 [place] [address] John Ennis PA-C [address] [place] [address] [email or web address] Pending Results Name Type Priority Associated Diagnoses Date /Time FL Guidance Needle Placement Non-Spine Imaging Routine Hip pain, chronic, right 01/03/2023 11:13 AM EDT Scheduled Orders Name Type Priority Associated Diagnoses Orde r Schedule FL Guidance Needle Placement Non-Spine Imaging Routine Hip pain, chronic, right 1 Occurrences starting 12/30/2022 until 03/31/2023 documented as of this encounter Visit Diagnoses Diagnosis Hip pain, chronic, right documented in this encounter Additional Health Concerns Infection Onset Date Last Indicated Resolved Time COVID-19 12/16/2022 12/16/2022 01/06/2023 1:21 AM EDT documented as of this encounter Care Teams Digital Media Analyst Relationship Specialty Start Date End Date Rich Gracia MD 35 [facility] [address] [place] [phone] PCP - General 07/17/17 03/09/25 John Ennis PA-C [address] [place] [address] [email or web address] PCP - General Physician Radiology Technologist 03/10/25 03/31/25 Khai Carver MD [address] [place], [place] [phone] [email or web address] PCP - General Internal Medicine 04/01/25 04/29/25 John Ennis PA-C [address] [place] [address] [email or web address] PCP - General Physician Radiology Technologist 04/30/25 Cinthya Felix MD [address] [place] [address] [facility], [place], [place] [phone] [email or web address] Historical LMR Provider 07/22/1704/29 documented as of this encounter Additional Source Comments The information contained in this document represents components of the legal health record. It is not the complete legal health record.[facility]
--- OUTSIDE RECORDS SUMMARY | 2025-07-31 07:56 | XMS_ITS | Encounter Summary ---
Author Organization [facility] Address [address] [place] [address] Phone Care Team Providers Care Pharmaceutical Compounding Supervisor Name Role Phone Rich Gracia MD Primary Care Provid er Cinthya Felix MD Unavailable [phone] John Ennis PA-C Primary Care Provider [phone] Khai Carver MD Primary Care Provider [phone] John Ennis PA-C Primary Care Provider [phone] Encounter Details Date Type Department Care Team (Late st Contact Info) Description 05/13/2024 Procedure Pass [facility] - [address] [place] [address] Social History Tobacco Use Types Packs/Day Years [...] 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 Not on file documented as of this encounter Plan of Treatment Upcoming Encounters Date Type Department Care Team (Late st Contact Info) Description 07/23/2025 Procedure Pass [facility] 30 [place] [address] 09/08/2025 9:30 AM EST Appointment [facility] 30 [place] [address] John Ennis PA-C 40 [place] [address] 09/22/2025 8:00 AM EST Office Visit [facility] [place] [facility] 40 [place] [address] John Ennis PA-C 40 [place] [address] documented as of this encounter Visit Diagnoses Not on filedocumented in this encounter Care Teams Pharmaceutical Compounding Supervisor Relationship Specialty Start Date End Date Rich Gracia MD [address] [phone] PCP - General 07/17/17 03/09/25 John Ennis PA-C 40 [place] [address] [email or web address] PCP - General Physician Duct Layer 03/10/25 03/31/25 Khai Carver MD [address] [place], [place] [phone] [email or web address] PCP - General Internal Medicine 04/01/25 04/29/25 John Ennis PA-C [address] [place] [address] PCP - General Physician Duct Layer 04/30/25 Cinthya Felix MD [address] [place] [address] Orth[facility], [place], [place] [phone] [email or web address] Historical LMR Provider 07/22/1704/29 documented as of this encounter Additional Source Comments The information contained in this document represents components of the legal health record. It is not the complete legal health record.[facility]
--- OUTSIDE RECORDS SUMMARY | 2025-07-31 07:56 | XMS_ITS | Encounter Summary ---
Author Organization [facility] Address [address] [place] [address] Phone Care Team Providers Care National Sales Executive Name Role Phone Rich Gracia MD Primary Care Provid er Cinthya Felix MD Unavailable [phone] John Ennis PA-C Primary Care Provider [phone] Khai Carver MD Primary Care Provider [phone] John Ennis PA-C Primary Care Provider [phone] Reason for Referral * MRI/CAT Scan - Closed Specialty Diagnoses / Procedures Referred By Lennie petit Referred To Contact Radiology Diagnoses LUQ pain Nausea Procedures CT Abdomen/Pelvis CHG CT SCAN,ABDOMENT AND PELVIS,W CONTRAST Celina Hernández NP [address] [place] [address] Phone: tel: fax: Referral ID Status Reason Start Date Expiration Date Visits Re quested Visits Authorized [id number] Closed 02/19/2024 04/19/2024 1 1 Encounter Details Date Type Department Care Team (Latest Contact Info) Description 02/19/2024 Transcribe Orders Virtual Department [address] [place] [address] Celina Hernández NP [address] [place] [phone] LUQ pain (Primary Dx); Nausea Social History Tobacco Use Types Packs/Day Years [...] 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 Not on file documented as of this encounter Plan of Treatment Upcoming Encounters Date Type Department Care Team (Late st Contact Info) Description 07/23/2025 Procedure Pass [facility] [address] [place] [address] 09/08/2025 9:30 AM EST Appointment [facility] [address] [place] [address] John Ennis PA-C [address] [place] [email or web address] 09/22/2025 8:00 AM EST Office Visit [facility] [place] [facility] [address] [place], [place] [phone] John Ennis PA-C [address] [place] [phone] documented as of this encounter Results * CT ABDOMEN/PELVIS WITH CONTRAST (03/12/2024 4:25 PM EDT) Anatomical Region Laterality Modality Abdomen, Pelvis Computed Tomogra phy 03/12/2024 8:56 PM EDT Impressions 03/14/2024 5:40 AM EDT No cause for the reported symptoms identified in the abdomen/pelvis. Narrative 03/14/2024 5:[address] ABDOMEN/PELVIS WITH CONTRAST Referring clinician's provided indication for this examination in Epic: Outside Radiology Order; luq pain TECHNIQUE: Multidetector-row CT of the abdomen and pelvis was performed after administration of intravenous contrast using tailored dose modulation techniques. Images were reconstructed in the axial, coronal, and sagittal planes. COMPARISON: None FINDINGS: Lower Chest: Normal. No consolidation or pleural effusions. Liver: No suspicious focal liver lesion. Biliary: No biliary ductal dilatation. Prior cholecystectomy. Spleen: Normal. No splenomegaly or focal lesions. Pancreas: Normal. No masses or ductal dilatation. Adrenal Glands: Normal. No nodules. Kidneys/Ureters: No solid renal mass or hydronephrosis. Bowel: No bowel obstruction or wall thickening. Normal appendix. Peritoneum/Retroperitoneum: Normal. No masses, pneumoperitoneum, or fluid. Lymph Nodes: Normal. No lymphadenopathy. Pelvic Organs/Bladder: Normal. No mass. Vessels: No abdominal aortic aneurysm. Bones/Soft Tissues: No suspicious focal osseous lesion. Mild spine degenerative changes. Procedure Note L[place] Mackey MD - 03/14/2024 CT ABDOMEN/PELVIS WITH CONTRAST Referring clinician's provided indication for this examination in Epic:Outside Radiology Order; luq pain TECHNIQUE: Multidetector-row CT of the abdomen and pelvis was performedafter administration of intravenous contrast using tailored dosemodulation techniques. Images were reconstructed in the axial, coronal,and sagittal planes. COMPARISON: None FINDINGS: Lower Chest: Normal. No consolidation or pleural effusions. Liver: No suspicious focal liver lesion. Biliary: No biliary ductal dilatation. Prior cholecystectomy. Spleen: Normal. No splenomegaly or focal lesions. Pancreas: Normal. No masses or ductal dilatation. Adrenal Glands: Normal. No nodules. Kidneys/Ureters: No solid renal mass or hydronephrosis. Bowel: No bowel obstruction or wall thickening. Normal appendix. Peritoneum/Retroperitoneum: Normal. No masses, pneumoperitoneum, orfluid. Lymph Nodes: Normal. No lymphadenopathy. Pelvic Organs/Bladder: Normal. No mass. Vessels: No abdominal aortic aneurysm. Bones/Soft Tissues: No suspicious focal osseous lesion. Mild spinedegenerative changes. IMPRESSION: No cause for the reported symptoms identified in the abdomen/pelvis. Celina Kay Edgar HEATING AND AIR CONDITIONING MECHANIC IMG CT ABD/PELVIS Final R esult documented in this encounter Visit Diagnoses Diagnosis LUQ pain- Primary Abdominal pain, left upper quadrant Nausea Nausea alone LUQ pain Abdominal pain, left upper quadrant Nausea Nausea alone documented in this encounter Care Teams National Sales Executive Relationship Specialty Start Date End Date Rich Gracia MD [address] [place] [phone] PCP - General 07/17/17 03/09/25 John Ennis PA-C [address] [place] [address] [email or web address] PCP - General Physician Nutrition Partner 03/10/25 03/31/25 Khai Carver MD [address] [place] [address] [email or web address] PCP - General Internal Medicine 04/01/25 04/29/25 John Ennis PA-C [address] [place] [phone] PCP - General Physician Nutrition Partner 04/30/25 Cinthya Felix MD [address] [place] [address] Orthopedics & Sports Medicine, [facility] [place] [address] [email or web address] Historical LMR Provider 07/22/1704/29 documented as of this encounter Additional Source Comments The information contained in this document represents components of the legal health record. It is not the complete legal health record.[facility]
--- OUTSIDE RECORDS SUMMARY | 2025-07-31 07:56 | XMS_ITS | Clinical Summary ---
Author Organization [facility] Address [address] [place] [place] [phone] Phone Care Team Providers Care Diamond Die Maker Name Role Phone John Ennsi PA-C Primary Care Provider [phone] Allergies Active Allergy Reactions Criticality Noted Date Comments Amoxicillin Anaphylaxis High 01/01/2019 Dicloxacillin Anaphylaxis High 11/09/2022 Other reaction(s): hives Nitrofurantoin Macrocrystal Hives 01/02/20 19 Other reaction(s): rash Adhesive 01/01/2019 Hypafix medical adhesive dressings cause skin burning Medications omeprazole (PRILOSEC) 10 MG capsule Take 10 mg by mouth daily. 1/2 or 1 tablet Orally Once a day Active acetaminophen (TYLENOL) 325 mg tablet Take 650 mg by mouth every 6 (six) hours as needed. Active clindamycin (CLEOCIN) 300 MG capsule Take 600 mg by mouth once as needed (dental surgery). Prior to dental work 04/13/20 23 Active lisinopril (PRINIVIL,ZESTRIL ) 10 MG tabletIndications :Benign essential hypertension Take 1 tablet (10 mg total) by mouth daily. 90 tablet 3 05/09/20 25 Active buPROPion (WELLBUTRIN XL) 150 MG ER 24 hr tablet TAKE 1 TABLET BY MOUTH EVERY DAY IN THE MORNING 90 tablet 3 06/03/20 25 Active simvastatin (ZOCOR) 20 MG tabletIndications :Mixed hyperlipidemia TAKE 1 TABLET BY MOUTH EVERY DAY IN THE EVENING 90 tablet 3 06/03/20 25 Active ZEPBOUND 15 mg/0.5 mL subcutaneous pen Inject 15 mg under the skin once a week. 04/24/20 25 Active FLUoxetine (PROZAC) 20 MG capsuleIndication s:Depression TAKE 1 CAPSULE BY MOUTH EVERY DAY 90 capsule 3 07/07/20 25 Active celecoxib (CELEBREX) 200 MG capsule TAKE 1 CAPSULE BY MOUTH EVERY DAY 90 capsule 07/07/20 25 Active celecoxib (CELEBREX) 200 MG capsule Take 1 capsule (200 mg total) by mouth daily. 30 capsule 1 05/07/20 25 025 Discontinued FLUoxetine (PROZAC) 20 MG capsule Take 1 capsule (20 mg total) by mouth daily. 30 capsule 1 05/07/20 25 025 Discontinued hydroCHLOROthiazi de 25 MG tablet Take 1 tablet (25 mg total) by mouth daily. 30 tablet 1 05/07/20 025 Discontinued(No longer taking) Active Problems Problem Noted Date Diagnosed Date Pre-op evaluation 07/23/2025 Assessment & Plan (07/23/2025 12:49 PM EDT): Patient with a past medical history of GERD, arthritis, COVID, depression, diverticular disease, hiatal hernia, hypertension, hyperlipidemia, obesity, skin cancer who presents today for a preop visit. Patient is to undergo bilateral cataract surgery on 08/08/2025 on the left and right eye on 08/19/2025. Patient with a history of cardiac murmur which is a longstanding I will obtain an echocardiogram however this should not prevent her from undergoing cataract surgery. Her blood pressure is well-controlled on lisinopril 10 mg p.o. daily. Her other medical conditions are well-controlled on current regimen. According to the ACP the perioperative risk patient is noted to be a low risk for cardiac events during and post procedure. Patient is cleared for surgery. Tremor 06/16/2025 Assessment & Plan (06/16/2025 9:00 AM EDT): Patient mentions that she continues to have a left upper extremity tremor which has been increasing over the course of the last few months with noted episodes lasting for about 20 seconds. He did explain to the patient that this could definitely be either a benign essential tremor versus other etiologies such as Parkinson's therefore recommend that the patient be seen and evaluated by neurology. She denies any head bobbing, or right upper extremity tremor. - [facility] neurology referral placed Routine general medical exam ination at a health care facility 03/10/2025 Assessment & Plan (03/10/2025 11:45 AM EDT): Patient will undergo CMP, fasting glucose, TSH and lipid panel Patient is up-to-date her Pap and colonoscopy which she underwent in 2023 A diagnostic mammogram bilaterally was ordered, this was for a 6-month recall with her last one being done in September 2024. - Annual physical 1 year Breast cancer screening by mammogram 03/10/2025 Assessment & Plan (03/10/2025 11:46 AM EDT): Patient mentions that she was post undergo a repeat imaging from her appointment back in September 2024 which showed us area in the right breast. She is due for a bilateral mammogram therefore a diagnostic bilateral imaging was ordered. Depression 03/10/2025 Assessment & Plan (06/14/2025 6:22 PM EDT): Well-controlled on bupropion 150 mg daily and Prozac 20 mg p.o. daily which we will continue Assessment & Plan (03/10/2025 11:48 AM EDT): Well-controlled on bupropion 150 mg daily and Prozac 20 mg p.o. daily which we will continue Benign essential hypertension 03/10/2025 Assessment & Plan (06/16/2025 8:58 AM EDT): Well-controlled on lisinopril 10 mg p.o. daily and hydrochlorothiazide 12.5 mg p.o. daily. Patient mentions she has been getting systolic blood pressures of 90s with diastolic blood pressures of 60s to 70s. She denies any dizziness or lightheadedness with these readings however she is questioning if she really needs the hydrochlorothiazide. I did explain to the patient that we could hold the hydrochlorothiazide and she should monitor her blood pressures over the course of the next week or 2 and send in a reading of her blood pressures through the portal. She is to continue the lisinopril 10 mg p.o. daily Assessment & Plan (03/10/2025 11:47 AM EDT): Patient is currently on lisinopril 10 mg p.o. daily and hydrochlorothiazide 25 mg p.o. daily. Her blood pressure is well-controlled today. She does have episodes of intermittent dizziness which I feel could be due to her pressures dropping too low therefore I would recommend: - Continuing on the lisinopril 10 mg p.o. daily -Decrease hydrochlorothiazide from 25 mg daily down to 12.5 mg p.o. daily -Monitor blood pressures. Mixed hyperlipidemia 03/10/2025 Assessment & Plan (06/14/2025 6:21 PM EDT): Patient is on simvastatin 20 mg p.o. daily, her last lipid panel was within normal limits back in March 2025 and we will obtain a lipid panel. Assessment & Plan (03/10/2025 11:51 AM EDT): Patient is on simvastatin 20 mg p.o. daily and we will obtain a lipid panel. Primary osteoarthritis of both knees 01/01/2019 Obesity (BMI 30-39.9) 01/01/2019 Overview (08/19/2024): Target weight for BMI to be 40 or less is 250lbs On Wegovy Assessment & Plan (03/10/2025 11:44 AM EDT): Patient follows with the weight watchers virtual clinic and follows monthly. Patient started back in October 2024 and is lost a total of 60 pounds. She is currently on Zepbound 12.5 mg subcu weekly and is gradually losing weight with success. Assessment & Plan (08/19/2024 2:29 PM EST): Lost 15lbs since our last visit Still on wegovy Hoping for more weight loss but currently plateued Resolved Problems Problem Noted Date Diagnosed Date Resolved Date Arthritis 03/10/2025 06/14/2025 Assessment & Plan (03/10/2025 11:51 AM EDT): Patient with a history of arthritis who has undergone bilateral knee replacements however she has continued pain in the knees, hips, feet, shoulders and spine. Patient mentions that she has had cortisone injections in the past. She is maintained on Celebrex 200 mg daily as needed along with Tylenol 650 mg every 6 hours as needed Mixed incontinence urge and stress 06/18/2021 03/10/2025 Overview (06/18/2021): Wearing daily pad, leak with heavy lift, sneeze, and with strong urge on way to bathroom Assessment & Plan (06/18/2021 9:26 AM EDT): kegel 3/4, good form. Reviewed daily strengthening for this Discussed decreasing caffeine Reassured that this is common and not a health risk Oligomenorrhea 02/01/2019 06/18/2021 Right knee pain 01/16/2018 03/10/2025 Encounters Date Type Department Care Team Description 07/23/2025 11:20 AM EDT Office Visit [facility] Internal Medicine [address] [facility] [place] [address] John Ennis PA-C Pre-op evaluation (Primary Dx); Cardiac murmur, unspecified 07/09/2025 8:56 AM EDT - 07/09/2025 11:59 PM EDT Hospital Encounter [facility] [address] [place] [address] John Ennis PA-C Discharge Disposition: Home or Self Care 07/08/2025 Telephone [facility] Internal Medicine [address] [place] [address] John Ennis PA-C Pre-op Exam 07/05/2025 Refill [facility] Internal Medicine [address] [facility] [address] John Ennis PA-C Medication Refill 06/19/2025 Telephone [facility] Internal Medicine [address] [facility] [place] [address] John Ennis PA-C Neurology Referral 06/16/2025 8:40 AM EDT Office Visit [facility] Internal Medicine [address] [facility] [place] [address] John Ennis PA-C Benign essential hypertension (Primary Dx); Mixed hyperlipidemia; Depression, unspecified depression type; Tremor 06/02/2025 Refill [facility] Internal Medicine [address] [facility] [place] [address] John Ennis PA-C Med Change Request from Last 3 Months Immunizations Immunization Administration Dates Next Due COVID-19 (Pre-07/24) Pfizer Vaccine, Bivalent 12+ 06/29/2022,06/29/2022 COVID-19 (Pre-07/24) Pfizer Vaccine, mRNA, PF 02/11/2022,02/11/2022,07/01/2021,2020,10/20/2020,10/20/2020,09/29/2020 COVID-19 (Pre-07/24) [employer] Vaccine, mRNA, jackie-sucrose, PF 02/11/2022 COVID-19, Unspecified Formulation 09/29/2020, INFLUENZA, SPLIT VIRUS, TRIVALENT PF 06/16/2025, 07/02/2024 INFLUENZA, SPLIT VIRUS, TRIV ALENT W/ PRESERVATIVE IM 06/07/2016,08/21/2013 Influenza Quadrivalent MDCK Preservative Free IM 07/13/2021,07/22/2018,07/18/2018 Influenza Quadrivalent Prese rvative Free IM 06/19/2023,06/29/2022,05/21/2020,2013 Influenza Quadrivalent w/ Preservative IM 05/21/2020,07/16/2018,08/02/2017 Influenza Recombinant Vannesa valent Preservative Free IM 07/01/2019 MMR 10/27/1994 RSV Vaccine (monovalent, adjuvanted) 05/21/2025 Tdap 07/09/2024,06/13/2014 Zoster recombinant 08/23/2020,05/29/2020 Family History Medical History Relation Comments Arthritis Brother Hypertension Brother Nephrolithiasis Brother Bipolar disorder Father Diabetes mellitus Father Hypertension Father Depression Maternal Grandfather Depression Maternal Grandmother Dementia Mother Breast cancer Paternal Aunt Colon cancer Paternal Uncle Relation Status Comments Brother Alive Father Maternal Grandfather Maternal Grandmother Mother Paternal Aunt Paternal Grandfather Paternal Grandmother Paternal Uncle Social History Tobacco Use Types Packs/Day Years Used Date Smoking Tobacco: Never Smokeless Tobacco: Never Tobacco Cessation:Counseling Given: Not Answered Alcohol Use Standard Drinks/Week Comments Yes 0 [...] high school, GED, job training, learning the Vietnamese language, technical skills, or developing parenting skills)? [...] your housing situation today? 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 on file Not on file Not on file Last Filed Vital Signs Vital Sign Reading Time Taken Comments Blood Pressure 108/74 07/23/2025 11:16 AM EDT Pulse 70 07/23/2025 11:16 AM EDT Temperature 36.3 C (97.4 F) 07/23/2025 11:16 AM EDT Respiratory Rate 16 07/23/2025 11:1 6 AM EDT Oxygen Saturation 96% 07/23/2025 11: 16 AM EDT Inhaled Oxygen Concentration - - Weight 103.3 kg (227 lb 12.8 oz) 2024 11:16 AM EDT Height 170.2 cm (5' 7.01 ) 07/23/2025 1 1:16 AM EDT Body Mass Index 35.67 07/23/2025 11:16 AM EDT Plan of Treatment Upcoming Encounters Date Type Department Care Team (Late st Contact Info) Description 07/23/2025 Procedure Pass [facility] [address] [place] [address] 09/08/2025 9:30 AM EST Appointment [facility] [address] [place] [address] John Ennis PA-C [address] [place] [address] 09/22/2025 8:00 AM EST [facility] [address] [place] [address] John Ennis PA-C [address] [place] [address] Health Maintenance Due Date Last Done Comments COLOGUARD 2006 FIT TEST 2006 FOBT 2006 SIGMOIDOSCOPY 2006 VIRTUAL COLONOSCOPY 2006 PNEUMOCOCCAL VACCINES (50+ years) (1 of - PCV) 2011 COVID-19 VACCINE ( season) 2025 05/21/2025, 06/15/2024, 07/05/2023, Additional history exists BLOOD PRESSURE 01/21/2026 07/23/2025 DEPRESSION SCREENING 03/05/2026 03/05/2025 HEPATITIS C SCREENING 03/10/2026 Postpo lilliana from 1979 (Patient Declines / Guardian Declines) HIV ONE-TIME SCREENING (18-65 YEARS) 03/10/2026 Postponed from 1979 (Patient Declines / Guardian Declines) CREATININE LEVEL 03/11/2026 03/11/2025, , 02/19/2024, Additional history exists POTASSIUM LEVEL 03/11/2026 03/11/2025, 08/02, 02/19/2024, Additional history exists MAMMOGRAM 05/05/2027 05/05/2025, 0812/2024, 04/09/2025, Additional history exists PAP SMEAR 02/23/2028 02/22/2023, 050 11/2018, 02/01/2019, Additional history exists SCREENING FOR DIABETES 03/11/2028 03/11/2025 LIPID PANEL 07/09/2030 07/09/2025, 03/02, 08/14/2024, Additional history exists COLONOSCOPY 08/22/2033 08/22/2023, 11/30/2005 COLORECTAL CANCER SCREENING 08/22/2033 Adult Td,Tdap Booster 07/09/2034 07/09/2024, 014 ZOSTER VACCINES Completed 08/23/2020, 05/29/2020 RSV VACCINE Completed 05/21/2025 INFLUENZA VACCINE Completed 06/16/2025, , 06/19/2023, Additional history exists SMOKING STATUS SCREENING (Once After 26 Yrs) Completed 07/23/2025 HEPATITIS A VACCINES Aged Out No long er eligible based on patient's age to complete this topic HIB VACCINES Aged Out No longer eligi ble based on patient's age to complete this topic MENINGOCOCCAL VACCINES (ACWY) Aged Out No longer eligible based on patient's age to complete this topic MENINGOCOCCAL VACCINES (B) Aged Out N o longer eligible based on patient's age to complete this topic Medical Devices Implanted Type Area 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 Mill 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 Device Identifier Shelf Expiration Date Model / Serial / Lot Prosthetic Joint Prosthetic Joint Bilatera l: Knee Cervical Spine Hardware Procedures Procedure Name Priority Date/Time Associated Diagnosis Comments LIPID PANEL Routine 07/09/2025 8:56 AM EDT Mixed hyperlipidemia BI MAMMOGRAM DIAGNOSTIC (BILATERAL) Routine 04/09/2025 8:13 AM EDT Other abnormal and inconclusive findings on diagnostic imaging of breast COMPREHENSIVE METABOLIC PANEL Routine 03/11/2025 9:29 AM EDT Routine general medical examination at a [facility] care facility ENDOSCOPY, COLON 08/22/2023 10:3 6 AM EST PAP TEST Routine 02/22/2023 12:00 AM EDT from Last 3 Months or Most Recently Relevant to Health Maintenance Results * (ABNORMAL) Lipid panel (07/09/2025 8:56 AM EDT) HDL 88 mg/dL [facility] Comment: Interpretation <40 mg/dL: Low HDL cholesterol (major risk factor for CHD) Greater than or equal to 60 mg/dL: High HDL cholesterol ( negative risk factor for CHD) HDL - cholesterol is affected by a number of factors, e.g. smoking, excerise, hormones, sex and age. CHOLESTEROL 184 0 - 240 mg/dL [facility] TRIGLYCERIDES 66 30 - 160 mg/dL [facility] LDL 83 50 - 129 mg/dL [facility] Comment: LDL levels in terms of risk for coronary heart disease: <100 mg/dL: Optimal 100-129 mg/dL: Near or above optimal 130-159 mg/dL: Borderline high 160-189 mg/dL: High >190 mg/dL: Very High CARDIAC RISK RATIO 2.1(L) 3.3 - 4.4 C [facility] Blood 07/09/2025 8:56 AM EDT 07/09/2025 8:58 AM EDT us John Ennis PA-C LAB BLOOD ORDERABLES Final Re sult [facility] [address] [place], [place] [id number] * Comprehensive metabolic panel (03/11/2025 9:29 AM EDT) SODIUM 133 133 - 146 mmol/L [facility] POTASSIUM 3.9 3.3 - 5.1 mmol/L [facility] CHLORIDE 99 96 - 108 mmol/L [facility] CO2 26 21 - 35 mmol/L [facility] BUN 14 6 - 19 mg/dL [facility] CREATININE 0.70 0.5 - 1.5 mg/dL [facility] GLUCOSE 96 70 - 99 mg/dL [facility] ALBUMIN 4.0 3.9 - 4.8 g/dL [facility] TOTAL PROTEIN 6.9 6.5 - 8.0 g/dL [facility] CALCIUM 9.6 8.4 - 10.3 mg/dL [facility] ALKALINE PHOSPHATASE 75 39 - 117 U/L [facility] TOTAL BILIRUBIN 0.4 0.0 - 1.2 mg/dL [facility] AST 20 0 - 37 U/L [facility] ALT 18 0 - 40 U/L [facility] GLOBULIN 2.9 1 - 4.8 g/dL [facility] EGFR 97 >59 mL/min/1.7 3m2 [facility] Comment:Estimated glomerular filtration rate calculated using the CKD-EPI refit equation. ANION GAP 12 10 - 20 mmol/L [facility] Blood 03/11/2025 9:29 AM EDT 03/11/2025 9:32 AM EDT us John Ennis PA-C LAB BLOOD ORDERABLES Final Re sult [address] [address] * ENDOSCOPY, COLON (08/22/2023 10:36 AM EST) Narrative Transcriptions Tobias Petersen MD - 08/22/2023 10:36 AM EST [facility] Patient Name: German Lucia Attending MD:: TOBIAS PETERSEN MD, , Procedure Date: 08/22/2023 10:36AM Date of : 1960 Age: 62 Admit Type: Outpatient Gender: Female Room: [facility] Referring MD: Rich Gracia MD Exam Type: Colonoscopy Indications: Screening for colon cancer: Family history of colorectal cancer in multiple 2nd degree relatives, High risk colon cancer surveillance: Personalhistory of colonic polyps Medications: Monitored Anesthesia Care Procedure: Informed consent was obtained from the patientafter discussion of the indications, limitations, alternatives, benefits, and risks of the procedure. Risks specifically discussed include but are not limited to medication reactions, missed lesions, bleeding, perforation, or the need for emergent surgery. Throughout the procedure, the patient's blood pressure, pulse, end-tidal CO2, and oxygensaturations were monitored continuously. The Olympus adult variable colonoscope CF-VF817V #4 was introduced through the anus and advanced to the cecum, identified by appendiceal orifice andileocecal valve. The colonoscopy was performed without difficulty. The patient tolerated the procedurewell. The quality of the bowel preparation was excellent. The quality of the bowel preparation was evaluated using the BBPS (Boaz Bowel Preparation Scale)with scores of: Right Colon = 3, Transverse Colon = 3and Left Colon = 3 (entire mucosa seen well with no residual staining, small fragments of stool oropaque liquid). The total BBPS score equals 9. Anatomical landmarks were photographed. Complications: No immediate complications. Estimated blood loss: Minimal. Findings: The perianal and digital rectal examinations were normal. A 4 mm polyp was found in the descending colon. The polyp was semi-pedunculated. The polyp was removed with a cold snare. Resection and retrieval were complete. Scattered small-mouthed diverticula were found inthe sigmoid colon. Internal hemorrhoids were found duringretroflexion. The hemorrhoids were mild. The exam was otherwise normal throughout theexamined colon. Impression: - One 4 mm polyp in the descending colon, removedwith a cold snare. Resected and retrieved. - Mild diverticulosis in the sigmoid colon. - Internal hemorrhoids. Recommendation: - Discharge patient to home. - Await pathology results. - Repeat colonoscopy in 5 years for surveillance. TOBIAS PETERSEN MD, 08/22/2023 10:56:39 AM This report has been signed electronically. Number of Addenda: 0 Note Initiated On: 08/22/2023 10:36 AM Procedure Code(s): --- Professional --- 33006, Colonoscopy, flexible; with removal of tumor(s), polyp(s), or other lesion(s) by snare technique --- Technical --- 52675, Colonoscopy, flexible; with removal of tumor(s), polyp(s), or other lesion(s) by snare technique Diagnosis Code(s): --- Professional --- Z80.0, Family history of malignant neoplasm of digestive organs Z86.010, Personal history of colonic polyps D12.4, Benign neoplasm of descending colon K64.8, Other hemorrhoids K57.30, Diverticulosis of large intestine without perforation or abscess without bleeding --- Technical --- Z80.0, Family history of malignant neoplasm of digestive organs Z86.010, Personal history of colonic polyps D12.4, Benign neoplasm of descending colon K64.8, Other hemorrhoids K57.30, Diverticulosis of large intestine without perforation or abscess without bleeding CPT copyright 2021 [employer]. All rights reserved. The codes documented in this report are preliminary and upon clinical transformation specialist reviewmay be revised to meet current compliance requirements. Procedure Date: 08/22/2023 10:36:[address] [place] [address] [id number] Rich Gracia MD GI PROCEDURE ORDERAB LES Final Result * Pap Test (02/22/2023 12:00 AM EDT) 02/22/2023 02/23/2023 8:2 4 AM EDT Narrative SEE NARRATIVE - 02/28/2023 11:28 AM EDT [address] [address] Boom Master: Laverne Silva MD BANQUET SERVER Cytology Report FINAL DIAGNOSIS A. PAP SMEAR (SUREPATH) CE: SPECIMEN ADEQUACY: Satisfactory for evaluation; transformation zone present. INTERPRETATION: NEGATIVE FOR INTRAEPITHELIAL LESION OR MALIGNANCY. Electronically Signed Out By: JULIEN Benavidez(ASCP) The Pap test is a screening test primarily for squamous cancers and precursors and has associated false-negative and false-positive results. New technologies such as liquid-based preparations may decrease but will not eliminate all false-negative results. Regular sampling and follow-up of unexplained clinical signs and symptoms are recommended to minimize false negative results. PROCEDURES/ADDENDA HPV Testing (Requested) Ordered Date: 02/23/2023 A. PAP SMEAR (SUREPATH) CE: Human Papilloma Virus Test NEGATIVE for high-risk Human Papilloma Virus types 16, 18, 45 and the Other high risk probe set (Includes 31, 33, 35, 39, 51, 52, 56, 58, 59, 66, 68) Note: Testing performed by ClearFit Onclarity HR-HPV analysis. Clinical correlation is advised. This HPV test was performed at [facility], [address] [place] [address]. This test has been FDA approved for SurePath cervical cytology specimens. The accuracy and precision of this test for all other specimen sources has been verified in the Cytopathology Laboratory of the [facility] and has not been cleared or approved by the U.S. Food and Drug Administration. Clinical correlation is advised. CLINICAL HISTORY Date of Last Menstrual Period: 03-31-2020 Menstrual History: Post Menopausal Other Clinical Conditions: Screening Pap SPECIMEN SOURCE A: PAP SMEAR (SUREPATH) CE Patient Name: JORGE LUCIAELE : 1960 (Age: 62) Sex: F Institution: [facility] Location: [facility] Date of Collection: 02/22/2023 Date of Reported: 02/28/2023 11:28 Results to: Scarlett Booth MD Scarlett Booth MD CYTOLOGY ORDERABLES Final Result SEE NARRATIVE from Last 3 Months or Most Recently Relevant to Health Maintenance Insurance [facility] PCP HILARY GASTELUM CONNECTORCARE WELLSENSE NON NSPG PCP SILVER CLARITY CONNECTORCARE WELLSENSE NON NSPG PCP SILVER CLARITY CONNECTORCARE WELLSENSE NON NSPG PCP SILVER CLARITY CONNECTORCARE [place] WELLSENSE NON NSPG PCP SILVER CLARITY CONNECTORCARE WELLSENSE NON NSPG PCP SILVER CLARITY CONNECTORCARE Care Teams Diamond Die Maker Relationship Specialty Start Date End Date John Ennis PA-C [address] [place] [address] @[email or web address] PCP - General Physician Street Light Repairer Helper 04/30/25 Additional Source Comments The information contained in this document represents components of the legal health record. It is not the complete legal health record.[facility]
--- OUTSIDE RECORDS SUMMARY | 2025-07-31 07:56 | XMS_ITS | Encounter Summary ---
Author Organization [facility] Address [address] [facility] [address] [place] [address] Phone Care Team Providers Care Dietetics Professor Name Role Phone Rich Gracia MD Primary Care Provid er Cinthya Felix MD Unavailable [phone] John Ennis PA-C Primary Care Provider [phone] Khai Carver MD Primary Care Provider [phone] John Ennis PA-C Primary Care Provider Encounter Details Date Type Department Care Team (Late st Contact Info) Description 01/10/2024 Ancillary Orders [facility] [address] [place] [address] Rich Gracia MD [address] [place] [address] Abnormal finding on mammography (Primary Dx) Social History Tobacco Use Types Packs/Day Years [...] 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 Not on file documented as of this encounter Plan of Treatment Upcoming Encounters Date Type Department Care Team (Late st Contact Info) Description 07/23/2025 Procedure Pass [facility] Echo Lab [address] [place] [address] 09/08/2025 9:30 AM EST Appointment [facility] Echo Lab [address] [place] [address] John Ennis PA-C [address] [place] [address] 09/22/2025 8:00 AM EST Office Visit [facility] Internal Medicine [address] [place], [place] [id number] John Ennis PA-C [address] [place] [address] documented as of this encounter Results * BI MAMMOGRAM DIAGNOSTIC WITH TOMOSYNTHESIS WITH CAD (RIGHT) (02/23/2024 8:34 AM EDT) Anatomical Region Laterality Modality Breast Right, Breast Bilateral Right M ammography 02/23/2024 8:58 AM EDT Impressions 02/23/2024 9:05 AM EDT 2 mm asymmetry in the inner anterior right breast is likely benign. A six-month follow-up right diagnostic mammogram is recommended. BI-RADS 3 PROBABLY BENIGN Short interval follow-up suggested Results and recommendations were communicated to the patient at time of examination. Narrative 02/23/2024 9:05 AM EDT BI MAMMOGRAM DIAGNOSTIC WITH TOMOSYNTHESIS WITH CAD (RIGHT) Additional patient information: COMPARISON: Comparison is made with relevant prior imaging. Breast composition: There are scattered areas of fibroglandular density. FINDINGS: Right Mammogram: 2 mm asymmetry persists in the inner anterior right breast on the spot compression cc view but no cord visualized on spot MLO or 90 degrees ML views. No evidence of a persisting suspicious mass. No architectural distortion. Procedure Note Rohan Newell MD - 02/23/2024 BI MAMMOGRAM DIAGNOSTIC WITH TOMOSYNTHESIS WITH CAD (RIGHT) Additional patient information: COMPARISON: Comparison is made with relevant prior imaging. Breast composition: There are scattered areas of fibroglandular density. FINDINGS: Right Mammogram: 2 mm asymmetry persists in the inner anterior right breast on the spotcompression cc view but no cord visualized on spot MLO or 90 degrees MLviews. No evidence of a persisting suspicious mass. No architecturaldistortion. IMPRESSION: 2 mm asymmetry in the inner anterior right breast is likely benign. Asix-month follow-up right diagnostic mammogram is recommended. BI-RADS 3 PROBABLY BENIGN Short interval follow-up suggested Results and recommendations were communicated to the patient at time ofexamination. Rich Gracia MD IM MG EXAMS Leonora l Result documented in this encounter Visit Diagnoses Diagnosis Abnormal finding on mammography- Primary Abnormal finding on mammography documented in this encounter Care Teams Dietetics Professor Relationship Specialty Start Date End Date Rich Gracia MD [address] [place] [phone] PCP - General 07/17/17 03/09/25 John Ennis PA-C [address] [place] [address] PCP - General Physician Gore Maker 03/10/25 03/31/25 Khai Carver MD [address] [place] [address] [email or web address] PCP - General Internal Medicine 04/01/25 04/29/25 John Ennis PA-C [address] [place] [address] [email or web address] PCP - General Physician Gore Maker 04/30/25 Cinthya Felix MD [address] [place] [address] [facility], [place], [place] [id number] [email or web address] Historical LMR Provider 07/22/1704/29 documented as of this encounter Additional Source Comments The information contained in this document represents components of the legal health record. It is not the complete legal health record.[facility]
--- OUTSIDE RECORDS SUMMARY | 2025-07-31 07:56 | XMS_ITS | Encounter Summary ---
Author Organization [facility] Address [address] [place] [address] Phone Care Team Providers Care Grey Goods Examiner Name Role Phone Rich Gracia MD Primary Care Provid er Cinthya Felix MD Unavailable [phone] John Ennis PA-C Primary Care Provider [phone] Khai Carver MD Primary Care Provider [phone] John Ennis PA-C Primary Care Provider [phone] Encounter Details Date Type Department Care Team (Late st Contact Info) Description 08/22/2023 Procedure Pass [facility] Endoscopy Admitting Dept Virtual Department [address] [place] [address] Social History Tobacco Use Types Packs/Day Years [...] 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 Internal Medicine [address] [place] [address] John Ennis PA-C [address] [place] [address] documented as of this encounter Visit Diagnoses Not on filedocumented in this encounter Care Teams Grey Goods Examiner Relationship Specialty Start Date End Date Rich Gracia MD [address] [facility] 1 [place] [phone] PCP - General 07/17/17 03/09/25 John Ennis PA-C [address] [place] [address] PCP - General Physician Log Inspector 03/10/25 03/31/25 Khai Carver MD [address] [place] [address] [email or web address] PCP - General Internal Medicine 04/01/25 04/29/25 John Ennis PA-C [address] [place] [address] PCP - General Physician Log Inspector 04/30/25 Cinthya Felix MD [address] [place] [address] Orthopedics [facility] Sports Medicine, [place] [address] [email or web address] Historical LMR Provider 07/22/1704/29 documented as of this encounter Additional Source Comments The information contained in this document represents components of the legal health record. It is not the complete legal health record.[facility]
--- OUTSIDE RECORDS SUMMARY | 2025-07-31 07:56 | XMS_ITS | Patient Health Record ---
Author [facility] [place] Address [address] [facility] [place] [address] Care Team Providers Care Helper Steel Fabrication Name Role Phone Rich Gracia MD Primary Care Provider Unava ilable Black, Cherrie Unavailable [phone] Allergies Allergen (clinical drug ingredient) Drug/Non Drug Allergy documented on EMR Reaction Allergy Type Onset Date Status amoxicillin Amoxicillin anaphylaxis, hives Drug Allergy Active nitrofurantoin Macrodantin Unknown Drug Allergy Active Adhesive Blisters Allergy Active Penicillin anaphylaxis, hives Drug Allergy Active Reason For Referral No Information Medications Medication SIG (Take, Route, Frequency, Duration) Notes Start Date End Date Status Lisinopril 10 MG 1 tablet Orally Once a day; Duration: 30 day(s) Active hydroCHLOROthiazide 25 MG 1 tablet in th e morning Orally Once a day; Duration: 30 day(s) Active CeleBREX 200 MG 1 capsule with food Orally Once a day; Duration: 30 day(s) Active FLUoxetine HCl (PMDD) 20 MG 1 tablet Ora lly Once a day; Duration: 30 day(s) Active Wegovy 2.4 MG/0.75ML 0.75 mL Subcutaneou s; Duration: 30 day(s) Active Omeprazole 10 MG 1 capsule 30 minutes before morning meal Orally Once a day; Duration: 30 day(s) Active Simvastatin 20 MG 1 tablet in the even ing Orally Once a day; Duration: 30 day(s) Active Social History Tobacco Use: Social History Observation Description Date Details (start date - stop date) Never Smoker NA - NA Tobacco Use/Smoking Question Answer Notes Are you a: nonsmoker Additional Findings: Tobacco Non-User Current no n-smoker Alcohol Screen Question Answer Notes Did you have a drink containing alcohol in the p ast year? No Points 0 Interpretation Negative Tobacco use other than smoking: Question Answer Notes Are you an other tobacco user? No Problems Problem Type SNOMED Code ICD Code Onset Dates Problem Status W/U Status Risk Notes Problem Localized, primary osteoarthritis of the ankle and/or foot (593979583) Primary osteoarthritis, left ankle and foot (M19.072) Active confirmed Problem Non-pressure chronic ulcer of other part of right foot limited to breakdown of skin (L97.511) Active confirmed Problem Osteoarthritis of midtarsal joint of left foot (6905631247866782 ) Osteoarthritis of midtarsal joint of left foot (M19.072) Active confirmed Plan Of Treatment Pending Test Test Name Order Date 25933- Debride <25 sq cm 05/22/2020 Medical (General) History Medical History History ICD Code Arthritis Back,Hip,and Knee pain Cancer covid-19 Depression Gall bladder problems Chicken pox Joint implants/screws High blood pressure Reflux ( GERD) Surgical History Surgery Date(Month/Year) anterior cervical discectomy fusion 07/03 014 Alan's neuroma 1996 gallbladder 2003 [facility] knee surgery 06/06/19 Left knee surgery 04/2022
--- OUTSIDE RECORDS SUMMARY | 2025-07-31 07:56 | XMS_ITS | Encounter Summary ---
Author Organization [facility] Address [address] [place] [address] Phone Care Team Providers Care Loom Tuner Name Role Phone Rich Gracia MD Primary Care Provid er Cinthya Felix MD Unavailable [phone] John Ennis PA-C Primary Care Provider [phone] Khai Carver MD Primary Care Provider [phone] John Ennis PA-C Primary Care Provider [phone] Encounter Details Date Type Department Care Team (Late st Contact Info) Description 04/19/2023 Procedure Pass [facility]oscopy Admitting Dept Virtual Department [address] [place] [address] Social History Tobacco Use Types Packs/Day Years [...] 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 Not on file documented as of this encounter Plan of Treatment Upcoming Encounters Date Type Department Care Team (Late st Contact Info) Description 07/23/2025 Procedure Pass [facility] [address] [place] [address] 09/08/2025 9:30 AM EST Appointment [facility] [address] [place] [address] John Ennis PA-C [address] [place] [address] 09/22/2025 8:00 AM EST Office Visit [facility] Internal Medicine [address] [place] [address] John Ennis PA-C [address] [place] [address] documented as of this encounter Visit Diagnoses Not on filedocumented in this encounter Care Teams Loom Tuner Relationship Specialty Start Date End Date Rich Gracia MD [address] [facility] 1 [place] [address] PCP - General 07/17/17 03/09/25 John Ennis PA-C [address] [place] [address] PCP - General Physician Gear Cutting Machine Operator 03/10/25 03/31/25 Khai Carver MD [address] [place] [address] [email or web address] PCP - General Internal Medicine 04/01/25 04/29/25 John Ennis PA-C [address] [place] [address] PCP - General Physician Gear Cutting Machine Operator 04/30/25 Cinthya Felix MD [address] [place] [address] [facility] Medicine, [place] [address] [email or web address] Historical LMR Provider 07/22/1704/29 documented as of this encounter Additional Source Comments The information contained in this document represents components of the legal health record. It is not the complete legal health record.[facility]
--- OUTSIDE RECORDS SUMMARY | 2025-07-31 07:56 | XMS_ITS | Encounter Summary ---
Author Organization [facility] Address [address] [place] [address] Phone Care Team Providers Care Motor Coach Chauffeur Name Role Phone Rich Gracia MD Primary Care Provid er Karo Harris CERTIFIED REGISTERED LOCKSMITH Unavailable Vivian Huitron NP Unavailable [phone] Siva Vazquez MD Unavailable Rich Gracia MD Unavailable [phone] Katharine Mackey DEPUTY DISTRICT CUSTOMS DIRECTOR Unavailable [phone] Laverne Sullivan MD Unavailable [phone] Cinthya Felix MD Unavailable [phone] Farhat Saucedo MD Unavailable [phone] John Ennis PA-C Primary Care Provider [phone] Khai Carver MD Primary Care Provider [phone] John Ennis PA-C Primary Care Provider [phone] Encounter Details Date Type Department Care Team (Late st Contact Info) Description 06/25/2019 Procedure Pass [facility] Admitting Dept - Virtual Department [address] [place] [address] Social History Tobacco Use Types Packs/Day Years [...] 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 Not on file documented as of this encounter Plan of Treatment Upcoming Encounters Date Type Department Care Team (Late st Contact Info) Description 07/23/2025 Procedure Pass [facility] [address] [place] [address] 09/08/2025 9:30 AM EST Appointment [facility] Echo Lab [address] [place] [address] John Ennis PA-C [address] [place] [address] 09/22/2025 8:00 AM EST Office Visit [facility] Internal Medicine [address] [place] [address] John Ennis PA-C [address] [place] [address] documented as of this encounter Visit Diagnoses Not on filedocumented in this encounter Additional Health Concerns Infection Onset Date Last Indicated Resolved Time COVID-19 12/16/2022 12/16/2022 01/06/2023 1:21 AM EDT documented as of this encounter Care Teams Motor Coach Chauffeur Relationship Specialty Start Date End Date Rich Gracia MD [address] [facility] [address] [place] [phone] PCP - General 07/17/17 03/09/25 John Ennis PA-C [address] [place] [address] PCP - General Physician Machine Woodworking Sander 03/10/25 03/31/25 Khai Carver MD [address] [place] [address] PCP - General Internal Medicine 04/01/25 04/29/25 John Ennis PA-C [address] [place] [address] [email or web address] PCP - General Physician Machine Woodworking Sander 04/30/25 Karo Harris, JEMAL [address] [place] [address] Historical LMR Provider 07/22/17 Vivian Huitron, JEMAL [address] [place] [address] [email or web address] Historical LMR Provider 07/22/17 10/09/21 Siva Vazquez MD [address] [place] [address], [address] [place] [address] Historical LMR Provider 07/22/17 10/09/21 Rich Gracia MD [address] [phone] Historical LMR Provider 07/22/17 2 Katharine Mackey FNP [address] [facility]. 204, [address] [place] [address] Historical LMR Provider 07/22/17 10/09/21 Laverne Sullivan MD [address] [place] [address] 204, [address] [place] [address] Historical LMR Provider 07/22/17 10/09/21 Cinthya Felix MD [address] [place] [address] Orthopedics & Sports [facility], [place] [address] Historical LMR Provider 07/22/1704/29 Farhat Saucedo MD [address] [place] [address] Orthopedics Sports [facility], [place], [place] [id number] Historical LMR Provider 07/22/17 2 documented as of this encounter Additional Source Comments The information contained in this document represents components of the legal health record. It is not the complete legal health record.[facility]
[2025-07-31 08:03] VITALS: BP 142/90; PULSE 73; RESP 16; O2SAT 97; BMI 35.4
== END 2025-07-31 08:48 | disposition home or self-care (01) ==
LOC: HO.HSM 07:51
PROVIDERS: Visit Provider Nurse Practitioner
DX: R53.1 Weakness (principal); R25.3 Fasciculation
CPT/HCPCS: 99204

== ENCOUNTER → 2025-07-31 07:51 | Outpatient (BNVA) | payer OTHER, SELFPAY | PROVIDERS: Visit Provider Nurse Practitioner | DX: R53.1 Weakness (principal); R25.3 Fasciculation; Z98.1 Arthrodesis status | CPT/HCPCS: 99202 ==